=== PATIENT | male | born 1960 | race Caucasian/White ===

== ENCOUNTER 2022-02-27 17:00 | Inpatient (IN) | payer MEDICAID ==
[2022-02-27] MEDS ORDERED: Sodium Chloride 0.9% 1,000 ML IV ONE ×2 (17:25→19:10)
[2022-02-27] MEDS ORDERED: Ondansetron 4 MG/2 ML SDV IVPUSH ONE (18:07)
[2022-02-27 19:01] LABS: ANION GAP 19.9 meq/L (7-15); CHLORIDE,CL 99 mmol/L (98-107); SODIUM,NA 138 mmol/L (136-145)
[2022-02-27 19:02] LABS: ESTIMATED GFR 34 mL/min (>=60)
[2022-02-27 19:56] LABS: CORONAVIRUS COVID-19 NAA NEGATIVE (NEGATIVE); RESPIRATORY SYNCYTIAL VIR NAA NEGATIVE (NEGATIVE)
[2022-02-27] MEDS ORDERED: Betamethasone Dipropionate/Clotrimazole 0.05-1% Crm 15 GM Tube TOP PRN (22:12)
[2022-02-27] MEDS ORDERED: 50% Dextrose in Water 50 ML Syringe IVPUSH PRN (22:13)
[2022-02-27] MEDS ORDERED: Glucagon,Human Recombinant 1 MG Vial IM PRN (22:13)
[2022-02-27] MEDS ORDERED: Enoxaparin 40 MG/0.4 ML Syringe SUBCUT SCH (22:30)
[2022-02-27] MEDS: cefTRIAXone 1 GM in Sodium Chloride 0.9% 100 ML IV SCH (23:04)
[2022-02-27] MEDS: Sodium Chloride 0.9% 1,000 ML IV SCH (23:05)
[2022-02-28] MEDS ORDERED: Pantoprazole 40 MG Vial IVPUSH ONE (00:34)
[2022-02-28 01:38] LABS: ANION GAP 11.7 meq/L (7-15)
[2022-02-28] MEDS: Melatonin 3 MG Tab PO SCH ×2 (02:22→19:52)
[2022-02-28] MEDS ORDERED: Ondansetron 4 MG/2 ML SDV IVPUSH ONE (03:04)
[2022-02-28] MEDS: Ondansetron 4 MG/2 ML SDV IVPUSH PRN ×3 (03:36→20:42)
[2022-02-28] MEDS: Pantoprazole 40 MG Vial IVPUSH SCH ×2 (07:30→20:40)
[2022-02-28] MEDS: Menthol 10%/Methyl Salicylate 15% 85 GM Tube TOP PRN (07:45)
[2022-02-28] MEDS ORDERED: Non-Formulary Medication 1 Each (Lisinopril/Hydrochlorothiazide [Lisinopril-Hctz 20-12.5 M PO SCH (08:00)
[2022-02-28] MEDS ORDERED: Aspirin 81 MG Tab.EC PO SCH (08:00)
[2022-02-28] MEDS ORDERED: Sodium Chloride 0.9% 250 ML IV SCH (08:15)
[2022-02-28] MEDS ORDERED: Furosemide 40 MG/4 ML VIAL IVPUSH ONE (08:21)
[2022-02-28] MEDS: Insulin Lispro 100 Units/ML 3 ML Vial SUBCUT SCH ×3 (08:30→17:11)
[2022-02-28] MEDS: Gabapentin 400 MG Cap PO SCH ×2 (08:30→19:52)
[2022-02-28] MEDS: Metoprolol Tartrate 50 MG Tab PO SCH ×2 (11:40→19:51)
[2022-02-28] MEDS: Hydrochlorothiazide 25 MG Tab PO SCH (11:41)
[2022-02-28] MEDS: Lisinopril 20 MG Tab PO SCH (11:41)
[2022-02-28] MEDS ORDERED: GI Cocktail Oral Solution 30 ML PO ONE (13:31)
[2022-02-28] MEDS ORDERED: GI Cocktail Oral Solution 30 ML ONE (13:50)
[2022-02-28] MEDS: Sodium Chloride 0.9% 1,000 ML IV SCH (17:20)
[2022-02-28] MEDS: atorvaSTATin 40 MG Tab PO SCH (19:51)
[2022-02-28] MEDS: cefTRIAXone 1 GM in Sodium Chloride 0.9% 100 ML IV SCH (19:56)
[2022-03-01] MEDS: Acetaminophen 325 MG Tab PO PRN (05:25)
[2022-03-01 07:12] LABS: ANION GAP 5.3 meq/L (7-15)
[2022-03-01] MEDS: Sodium Chloride 0.9% 1,000 ML IV SCH ×2 (07:29→22:32)
[2022-03-01] MEDS: Gabapentin 400 MG Cap PO SCH (07:42)
[2022-03-01] MEDS: Lisinopril 20 MG Tab PO SCH (07:43)
[2022-03-01] MEDS: Metoprolol Tartrate 50 MG Tab PO SCH ×2 (07:44→17:07)
[2022-03-01] MEDS: Hydrochlorothiazide 25 MG Tab PO SCH (07:44)
[2022-03-01] MEDS: Pantoprazole 40 MG Vial IVPUSH SCH ×2 (07:47→19:30)
[2022-03-01] MEDS: Insulin Lispro 100 Units/ML 3 ML Vial SUBCUT SCH ×3 (07:47→17:07)
[2022-03-01] MEDS ORDERED: Magnesium Sulfate/Water 2 GM in Premix Bag 1 BAG IV ONE (11:17)
[2022-03-01] MEDS: Ondansetron 4 MG/2 ML SDV IVPUSH PRN (16:30)
[2022-03-01] MEDS: atorvaSTATin 40 MG Tab PO SCH (19:28)
[2022-03-01] MEDS: Melatonin 3 MG Tab PO SCH (19:28)
[2022-03-01] MEDS: Gabapentin 300 MG Cap PO SCH (19:29)
[2022-03-01] MEDS: Sodium Chloride 0.9% 10 ML Syringe FLUSH PRN (19:30)
[2022-03-02] MEDS: Insulin Lispro 100 Units/ML 3 ML Vial SUBCUT SCH ×3 (07:00→19:01)
[2022-03-02 07:44] LABS: ANION GAP 6.8 meq/L (7-15)
[2022-03-02] MEDS: Pantoprazole 40 MG Vial IVPUSH SCH ×2 (08:53→19:46)
[2022-03-02] MEDS: Metoprolol Tartrate 50 MG Tab PO SCH ×2 (11:34→19:46)
[2022-03-02] MEDS: Ciprofloxacin 500 MG Tab PO SCH ×2 (11:35→19:46)
[2022-03-02] MEDS: Gabapentin 300 MG Cap PO SCH ×2 (11:35→19:47)
[2022-03-02] MEDS: Hydrochlorothiazide 25 MG Tab PO SCH (11:36)
[2022-03-02] MEDS: Sodium Chloride 0.9% 1,000 ML IV SCH ×2 (11:37→23:43)
[2022-03-02] MEDS: Melatonin 3 MG Tab PO SCH (19:47)
[2022-03-02] MEDS: atorvaSTATin 40 MG Tab PO SCH (19:47)
[2022-03-02] MEDS ORDERED: Glycerin 5.4 GM/7.5 ML Suppository RECTAL ONE (22:33)
[2022-03-03] MEDS ORDERED: Glycerin 5.4 GM/7.5 ML Suppository RECTAL ONE (06:00)
[2022-03-03 08:12] LABS: ANION GAP 3.4 meq/L (7-15)
[2022-03-03] MEDS: Metoprolol Tartrate 50 MG Tab PO SCH ×2 (08:42→17:27)
[2022-03-03] MEDS: Hydrochlorothiazide 25 MG Tab PO SCH (08:42)
[2022-03-03] MEDS: Ciprofloxacin 500 MG Tab PO SCH ×2 (08:42→17:27)
[2022-03-03] MEDS: Gabapentin 300 MG Cap PO SCH ×2 (08:42→22:35)
[2022-03-03] MEDS: Pantoprazole 40 MG Vial IVPUSH SCH ×2 (08:43→22:32)
[2022-03-03] MEDS: LIRAGLUTIDE 18 MG/3 ML SUBCUT SCH (08:46)
[2022-03-03] MEDS: Insulin Lispro 100 Units/ML 3 ML Vial SUBCUT SCH ×3 (08:49→17:27)
[2022-03-03] MEDS ORDERED: Glycerin 2.8 GM/2.7 ML 4ML Supp ONE (08:56)
[2022-03-03] MEDS ORDERED: Glycerin 5.4 GM/7.5 ML Suppository ONE (08:56)
[2022-03-03] MEDS: Acetaminophen 325 MG Tab PO PRN ×2 (10:39→22:36)
[2022-03-03] MEDS: Sodium Chloride 0.9% 1,000 ML IV SCH ×2 (11:51→22:40)
[2022-03-03] MEDS: Ondansetron 4 MG/2 ML SDV IVPUSH PRN (22:32)
[2022-03-03] MEDS: atorvaSTATin 40 MG Tab PO SCH (22:36)
[2022-03-03] MEDS: Melatonin 3 MG Tab PO SCH (22:36)
[2022-03-03] MEDS: Menthol 10%/Methyl Salicylate 15% 85 GM Tube TOP PRN (22:38)
[2022-03-03] MEDS: Sodium Chloride 0.9% 10 ML Syringe FLUSH PRN (22:39)
[2022-03-04] MEDS: Pantoprazole 40 MG Vial IVPUSH SCH ×2 (09:46→20:28)
[2022-03-04] MEDS: Ciprofloxacin 500 MG Tab PO SCH ×2 (09:46→18:30)
[2022-03-04] MEDS: Metoprolol Tartrate 50 MG Tab PO SCH ×2 (09:46→18:32)
[2022-03-04] MEDS: Gabapentin 300 MG Cap PO SCH ×2 (09:46→20:28)
[2022-03-04] MEDS: LIRAGLUTIDE 18 MG/3 ML SUBCUT SCH (09:47)
[2022-03-04] MEDS: Insulin Lispro 100 Units/ML 3 ML Vial SUBCUT SCH ×3 (09:47→17:52)
[2022-03-04] MEDS: Hydrochlorothiazide 25 MG Tab PO SCH (09:47)
[2022-03-04] MEDS: Ondansetron 4 MG/2 ML SDV IVPUSH PRN ×2 (09:59→16:09)
[2022-03-04] MEDS: Sodium Chloride 0.9% 1,000 ML IV SCH (12:14)
[2022-03-04] MEDS: Melatonin 3 MG Tab PO SCH (20:29)
[2022-03-04] MEDS: atorvaSTATin 40 MG Tab PO SCH (20:29)
[2022-03-05 07:58] LABS: ANION GAP 6.3 meq/L (7-15)
[2022-03-05] MEDS: Gabapentin 300 MG Cap PO SCH ×2 (09:40→19:56)
[2022-03-05] MEDS: Acetaminophen 325 MG Tab PO PRN (09:40)
[2022-03-05] MEDS: Hydrochlorothiazide 25 MG Tab PO SCH (09:42)
[2022-03-05] MEDS: Ciprofloxacin 500 MG Tab PO SCH ×2 (09:43→17:51)
[2022-03-05] MEDS: Metoprolol Tartrate 50 MG Tab PO SCH ×2 (09:43→17:52)
[2022-03-05] MEDS: LIRAGLUTIDE 18 MG/3 ML SUBCUT SCH (09:44)
[2022-03-05] MEDS: Pantoprazole 40 MG Vial IVPUSH SCH ×2 (09:44→19:56)
[2022-03-05] MEDS: Insulin Lispro 100 Units/ML 3 ML Vial SUBCUT SCH ×3 (09:45→17:43)
[2022-03-05] MEDS: Ondansetron 4 MG/2 ML SDV IVPUSH PRN (09:57)
[2022-03-05] MEDS ORDERED: Magnesium Sulfate/Water 4 GM in Premix Bag 1 BAG IV ONE (15:08)
[2022-03-05] MEDS ORDERED: Magnesium Sulfate/Water 0 ML ONE (17:41)
[2022-03-05] MEDS: atorvaSTATin 40 MG Tab PO SCH (19:56)
[2022-03-05] MEDS: Melatonin 3 MG Tab PO SCH (19:56)
[2022-03-05] MEDS: Sodium Chloride 0.9% 10 ML Syringe FLUSH PRN ×2 (19:56→22:46)
[2022-03-05] MEDS ORDERED: Magnesium Sulfate/Water 2 GM in Premix Bag 1 BAG IV ONE (22:07)
[2022-03-05] MEDS: Magnesium Sulfate/Water 2 GM in Premix Bag 1 BAG IV ONE ×2 (23:41→23:45)
[2022-03-06] MEDS: Insulin Lispro 100 Units/ML 3 ML Vial SUBCUT SCH ×3 (07:18→17:23)
[2022-03-06] MEDS: Metoprolol Tartrate 50 MG Tab PO SCH ×2 (07:30→17:24)
[2022-03-06] MEDS: Hydrochlorothiazide 25 MG Tab PO SCH (07:30)
[2022-03-06] MEDS: Gabapentin 300 MG Cap PO SCH ×2 (07:30→20:14)
[2022-03-06] MEDS: Ciprofloxacin 500 MG Tab PO SCH ×2 (07:30→17:23)
[2022-03-06] MEDS: Sodium Chloride 0.9% 10 ML Syringe FLUSH PRN (07:31)
[2022-03-06] MEDS: Pantoprazole 40 MG Vial IVPUSH SCH ×2 (07:31→20:15)
[2022-03-06 07:47] LABS: ANION GAP 8.7 meq/L (7-15)
[2022-03-06] MEDS: LIRAGLUTIDE 18 MG/3 ML SUBCUT SCH (09:01)
[2022-03-06] MEDS: atorvaSTATin 40 MG Tab PO SCH (20:14)
[2022-03-06] MEDS: Metoclopramide 10 MG Tab PO SCH (20:14)
[2022-03-06] MEDS: Melatonin 3 MG Tab PO SCH (20:14)
[2022-03-06] MEDS ORDERED: Magnesium Hydroxide 400 MG/5 ML Susp 30 ML Cup PO ONE (21:20)
[2022-03-07] MEDS: Metoclopramide 10 MG Tab PO SCH ×3 (00:29→16:39)
[2022-03-07] MEDS: Pantoprazole 40 MG Vial IVPUSH SCH (07:34)
[2022-03-07] MEDS: Insulin Lispro 100 Units/ML 3 ML Vial SUBCUT SCH ×2 (07:39→11:39)
[2022-03-07] MEDS: Ciprofloxacin 500 MG Tab PO SCH (07:40)
[2022-03-07] MEDS: Gabapentin 300 MG Cap PO SCH (07:40)
[2022-03-07] MEDS: LIRAGLUTIDE 18 MG/3 ML SUBCUT SCH (07:42)
[2022-03-07 07:52] VITALS: BP 128/87; PULSE 106
[2022-03-07 07:52] LABS: ANION GAP 5.4 meq/L (7-15)
[2022-03-07] MEDS: Metoprolol Tartrate 50 MG Tab PO SCH (07:52)
[2022-03-07] MEDS: Hydrochlorothiazide 25 MG Tab PO SCH (07:53)
[2022-03-07 08:16] LABS: HEMOGLOBIN A1C 6.5 % (4.3-5.7)
[2022-03-07] MEDS ORDERED: Magnesium Oxide 400 MG Tab PO SCH (12:00)
== END 2022-03-07 17:40 | disposition home or self-care (01) | DRG 378 ==
LOC: LL.ED 17:00 → LL.MS 21:30
PROVIDERS: ADMIT Emergency Medicine; ATTEND Emergency Medicine
PROC: 30233N1 Transfusion of Nonautologous Red Blood Cells into Peripheral Vein, Percutaneous Approach (ICD-10-PCS; principal; 2022-02-27)
DX: K92.0 Hematemesis (principal); D62 Acute posthemorrhagic anemia; N39.0 Urinary tract infection, site not specified; N17.9 Acute kidney failure, unspecified; I13.0 Hypertensive heart and chronic kidney disease with heart failure and stage 1 through stage 4 chronic kidney disease, or unspecified chronic kidney disease; E87.2 Acidosis; E83.42 Hypomagnesemia; E86.0 Dehydration; M17.12 Unilateral primary osteoarthritis, left knee; H54.7 Unspecified visual loss; E78.00 Pure hypercholesterolemia, unspecified; N18.9 Chronic kidney disease, unspecified; E11.22 Type 2 diabetes mellitus with diabetic chronic kidney disease; E78.5 Hyperlipidemia, unspecified; I50.9 Heart failure, unspecified; B96.20 Unspecified Escherichia coli [E. coli] as the cause of diseases classified elsewhere; E11.42 Type 2 diabetes mellitus with diabetic polyneuropathy; E78.2 Mixed hyperlipidemia; E88.09 Other disorders of plasma-protein metabolism, not elsewhere classified; R63.4 Abnormal weight loss; M25.462 Effusion, left knee; Z79.82 Long term (current) use of aspirin; Z79.899 Other long term (current) drug therapy; Z79.4 Long term (current) use of insulin
CPT/HCPCS: 0241U; 36415; 36430; 71045; 74176; 80048; 80053; 81001; 82009; 82150; 82947; 83036; 83605; 83690; 83735; 83880; 85025; 85027; 86850; 86900; 86901; 86920; 86922; 87040; 87086; 87088; 87186; 93005; 96361; 96374; 97110-GP; 97163-GP; 97165-GO; 97530-GP; 97535-GO; 99285-25; A9270-GY; C9113; J0696; J1650; J1815-GY; J2405; J3475; J3490; J7030; J7050; P9016

== ENCOUNTER 2022-03-27 16:30 | Emergency (ER) | payer MEDICAID ==
[2022-03-27] MEDS ORDERED: Sodium Chloride 0.9% 10 ML Syringe FLUSH PRN (16:52)
[2022-03-27] MEDS ORDERED: Sodium Chloride 0.9% 1,000 ML IV ONE (16:53)
[2022-03-27] MEDS ORDERED: Metoclopramide 10 MG/2 ML SDV IVPUSH ONE (16:53)
[2022-03-27 18:50] LABS: ANION GAP 12.3 meq/L (7-15); CHLORIDE,CL 98 mmol/L (98-107); ESTIMATED GFR 63 mL/min (>=60); SODIUM,NA 135 mmol/L (136-145)
[2022-03-27] MEDS ORDERED: Magnesium Sulfate/Water 2 GM in Premix Bag 1 BAG IV ONE (18:59)
[2022-03-27] MEDS ORDERED: Ondansetron 4 MG Tab.DIS PO ONE (19:17)
[2022-03-27 21:39] VITALS: BP 122/89; PULSE 99
== END 2022-03-27 21:38 | disposition home or self-care (01) ==
LOC: LL.ED 16:30
DX: E83.42 Hypomagnesemia (principal); E87.1 Hypo-osmolality and hyponatremia; E78.00 Pure hypercholesterolemia, unspecified; I10 Essential (primary) hypertension; E11.9 Type 2 diabetes mellitus without complications; Z79.82 Long term (current) use of aspirin; Z79.899 Other long term (current) drug therapy; Z79.4 Long term (current) use of insulin
CPT/HCPCS: 36415; 80053; 83605; 83735; 85025; 93005; 93010; 96361; 96365; 96366; 96375; 99284; 99284-25; A9270-GY; J2765; J3475; J7030